=== PATIENT | male | born 1985 | race African-American/Black ===

== ENCOUNTER 2017-03-10 16:22 | Emergency (ER) | payer OTHER ==
[~2017-03-10 16:22] MED LIST: DIPH50TA PO; LISI-363 PO; METF500 PO; PALI234P IM; REST30CA PO; VALP250UDC PO; VIST50CA PO
--- NOTE | 2017-03-10 18:52 | PD ---
HPI Chief Complaint: Psychiatric Symptoms Time Seen by Provider: 18:49 Travel History International Travel<30 days: No Contact w/Intl Traveler<30days: No Traveled to known affect area: No History of Present Illness HPI 31-year-old male that presents to the ED for evaluation of psych. Patient was expected by family secondary to noncompliance. Per expected patient is manic and making nonsensical statements. Patient has a history of schizoaffective disorder. Denies any medical process other than diabetes. He states that he is compliant with his medications. He denies any suicidal or homicidal ideation to me. He denies any symptoms to me. He is a well known patient to the staff in the psychiatric area. He denies any other symptom. He is not really forthcoming with information unless questioned. Symptoms appear to be mild. Unclear length of time but per expected it's been ongoing. PFSH Past Medical History Asthma: Yes Autoimmune Disease: No Blood Disorders: No Bipolar Disorder: Yes Anxiety: Yes Depression: Yes Heart Rhythm Problems: No Cancer: No Cardiovascular Problems: No High Cholesterol: No Chest Pain: No Congestive Heart Failure: No COPD: No Diabetes: Yes Diminished Hearing: No Endocrine: No Gastrointestinal Disorders: No Genitourinary: No Headaches: No Hypertension: Yes Immune Disorder: No Kidney Stones: No Musculoskeletal: No Neurologic: No Psychiatric: Yes (history of bipoloar dx, schizophrnia and schizoeffective) Reproductive: No Respiratory: Yes Immunizations Current: Yes Renal Failure: No Schizophrenia: Yes Seizures: No Sleep Apnea: No Thyroid Disease: No PNEUMOCCOCAL Vaccine (Year): 2 Past Surgical History Abdominal Surgery: Yes (APPENDECTOMY 2002) Appendectomy: Yes Cardiac Surgery: No Ear Surgery: No Endocrine Surgery: No Eye Surgery: No Genitourinary Surgery: No Gynecologic Surgery: No Neurologic Surgery: No Oral Surgery: No Thoracic Surgery: No Other Surgery: No Social History Alcohol Use: No Tobacco Use: Yes (2 PPD) Substance Use: Yes (MARIJUANA) Allergies-Medications (Allergen,Severity, Reaction): Coded Allergies: No Known Allergies (Verified , 07/09/16) Reported Meds & Prescriptions Reported Meds & Active Scripts Active Invega Sustenna (Paliperidone Palmitate) 234 Mg/1.5 Ml Inj 234 Mg IM Q28D 28 Days Reported Glucophage 500 mg (Metformin HCl) 500 Mg Tab 500 Mg PO TID Diphenhydramine Hcl (Diphenhydramine HCl) 50 Mg Cap 50 Mg PO BID Vistaril 50 MG CAP (Hydroxyzine Pamoate) 50 Mg Cap 50 Mg PO TID PRN Lisinopril 20 mg (Lisinopril) 20 Mg Tab 1 Tab PO DAILY Depakene (Valproic Acid) 250 Mg/5 Ml Syrp 500 Mg PO BID Review of Systems Except as stated in HPI: all other systems reviewed are Neg Physical Exam Narrative GENERAL: SKIN: Warm and dry. HEAD: Atraumatic. Normocephalic. EYES: Pupils equal and round. No scleral icterus. No injection or drainage. ENT: No nasal bleeding or discharge. Mucous membranes pink and moist. Tongue is midline. No uvula deviation. NECK: Trachea midline. No JVD. CARDIOVASCULAR: Regular rate and rhythm. No murmurs, S3, S4. RESPIRATORY: No accessory muscle use. Clear to auscultation. Breath sounds equal bilaterally. GASTROINTESTINAL: Abdomen soft, non-tender, nondistended. Hepatic and splenic margins not palpable. MUSCULOSKELETAL: Extremities without clubbing, cyanosis, or edema. No obvious deformities. Full range of motion of the upper and lower extremities bilaterally. 2+ pulses bilaterally. NEUROLOGICAL: Awake and alert. No obvious cranial nerve deficits. Motor grossly within normal limits. Five out of 5 muscle strength in the arms and legs. Normal speech. PSYCHIATRIC: Appropriate mood and affect; insight and judgment normal. Data Data Orders Psych Screen (03/10/17 18:03) Diet Regular Basic (03/10/17 Dinner) Complete Blood Count With Diff (03/10/17 18:06) Comprehensive Metabolic Panel (03/10/17 18:06) Drug Screen, Random Urine (03/10/17 18:06) Alcohol (Ethanol) (03/10/17 18:06) Valproic Acid (Depakene) (03/10/17 19:25) Hydroxyzine Pamoate (Vistaril) (03/10/17 19:30) Lisinopril (Prinivil) (03/11/17 09:00) Metformin (Glucophage) (03/11/17 09:00) Valproic Acid Liq (Depakene Liq) (03/10/17 21:00) Labs Laboratory Tests Test 03/10/17 18:45 White Blood Count 6.5 TH/MM3 Red Blood Count 4.95 MIL/MM3 Hemoglobin 13.4 GM/DL Hematocrit 40.4 % Mean Corpuscular Volume 81.7 FL Mean Corpuscular Hemoglobin 27.1 PG Mean Corpuscular Hemoglobin 33.2 % Concent Red Cell Distribution Width 15.7 % Platelet Count 196 TH/MM3 Mean Platelet Volume 8.3 FL Neutrophils (%) (Auto) 50.2 % Lymphocytes (%) (Auto) 40.8 % Monocytes (%) (Auto) 5.0 % Eosinophils (%) (Auto) 3.2 % Basophils (%) (Auto) 0.8 % Neutrophils # (Auto) 3.3 TH/MM3 Lymphocytes # (Auto) 2.7 TH/MM3 Monocytes # (Auto) 0.3 TH/MM3 Eosinophils # (Auto) 0.2 TH/MM3 Basophils # (Auto) 0.1 TH/MM3 CBC Comment DIFF FINAL Differential Comment Sodium Level 140 MEQ/L Potassium Level 3.8 MEQ/L Chloride Level 104 MEQ/L Carbon Dioxide Level 32.4 MEQ/L Anion Gap 4 MEQ/L Blood Urea Nitrogen 8 MG/DL Creatinine 1.18 MG/DL Estimat Glomerular Filtration 88 ML/MIN Rate Random Glucose 117 MG/DL Calcium Level 8.6 MG/DL Total Bilirubin 0.3 MG/DL Aspartate Amino Transf 19 U/L (AST/SGOT) Alanine Aminotransferase 28 U/L (ALT/SGPT) Alkaline Phosphatase 75 U/L Total Protein 6.9 GM/DL Albumin 3.5 GM/DL Ethyl Alcohol Level 4 MG/DL MDM Medical Decision Making Medical Screen Exam Complete: Yes Emergency Medical Condition: Yes Medical Record Reviewed: Yes Interpretation(s) CBC & BMP Diagram 03/10/17 18:45 tox negative Differential Diagnosis Depression versus suicidal ideation versus anxiety versus adjustment disorder versus mood disorder versus bipolar disorder versus schizophrenia versus paranoid disorder versus psychosis versus substance abuse versus alcohol abuse versus alcohol induced psychosis versus homicidality addition versus cutting versus personality disorder Narrative Course 31-year-old male that presents to the ED for evaluation of psych. Patient was properly examined and was found to have signs and symptoms consistent with psychiatric illness. No sign of acute medical distress. Labs were drawn. Patient was medically cleared. Okay to be seen by psych. Mental health screening was discussed with the patient. Diagnosis Primary Impression: Schizophrenia Qualified Code: F20.9 - Schizophrenia, unspecified type Philip Damian Mar 10, 2017 18:52
[2017-03-10 18:57] LABS: AUTOMATED NEUTROPHIL # 3.3 TH/MM3 (1.8-7.7); BASOPHIL # 0.1 TH/MM3 (0-0.2); BASOPHIL % 0.8 % (0.0-2.0); EOSINOPHIL # 0.2 TH/MM3 (0-0.4); EOSINOPHIL % 3.2 % (0.0-4.0); HEMATOCRIT 40.4 % (39.0-51.0); HEMO FLAGS DIFF FINAL; LYMPH % 40.8 % (9.0-44.0); LYMPHOCYTE # 2.7 TH/MM3 (1.0-4.8); MEAN CELL VOLUME 81.7 FL (80.0-100.0); MEAN CORPUSCULAR HEMOGLOBIN 27.1 PG (27.0-34.0); MEAN CORPUSCULAR HGB CONC 33.2 % (32.0-36.0); NEUT % 50.2 % (16.0-70.0); PLATELET COUNT 196 TH/MM3 (150-450); RED BLOOD COUNT 4.95 MIL/MM3 (4.50-5.90); RED CELL DISTRIBUTION WIDTH 15.7 % (11.6-17.2); WHITE BLOOD COUNT 6.5 TH/MM3 (4.0-11.0)
[2017-03-10 19:17] LABS: ANION GAP 4 MEQ/L (5-15)
[2017-03-10 19:20] LABS: ALKALINE PHOSPHATASE 75 U/L (45-117); ALT (GPT) 28 U/L (12-78); AST (GOT) 19 U/L (15-37); BICARBONATE 32.4 MEQ/L (21.0-32.0); BLOOD UREA NITROGEN 8 MG/DL (7-18); CHLORIDE 104 MEQ/L (98-107); GLOMERULAR FILTRATION RATE 88 ML/MIN (>89); POTASSIUM 3.8 MEQ/L (3.5-5.1); SODIUM (NA) 140 MEQ/L (136-145); TOTAL BILIRUBIN ADULT 0.3 MG/DL (0.2-1.0)
[2017-03-10 20:02] VITALS: BP 126/75; PULSE 67; RESP 18; O2SAT 98
[2017-03-10] MEDS ORDERED: VALPROIC ACID SYRUP 250 MG/5 ML UDC PO SCH (21:00)
[2017-03-10 22:36] VITALS: BP 113/66; PULSE 71; RESP 19; O2SAT 96
[2017-03-11 01:57] LABS: AMPHETAMINE, URINE NEG (NEG); BARBITURATES, URINE NEG (NEG); COCAINE, URINE POS (NEG)
[2017-03-11 02:00] VITALS: BP 110/55; PULSE 70; RESP 18; O2SAT 97
[2017-03-11 06:17] VITALS: BP 114/71; PULSE 65; RESP 19; O2SAT 99
[2017-03-11] MEDS ORDERED: metFORMIN HCL 500 MG TAB PO SCH (09:00)
[2017-03-11] MEDS ORDERED: LISINOPRIL 20 MG TAB PO SCH (09:00)
== END 2017-03-11 07:32 ==
LOC: NEDAMB 16:22 → NEPJ 03-11 07:32
DX: F20.9 Schizophrenia, unspecified (principal); J45.909 Unspecified asthma, uncomplicated; F41.9 Anxiety disorder, unspecified; I10 Essential (primary) hypertension; E11.9 Type 2 diabetes mellitus without complications
CPT/HCPCS: 80053; 80164; 80307; 85025; 99285

== ENCOUNTER 2017-04-10 00:47 | Emergency (ER) | payer SELFPAY ==
[~2017-04-10] VITALS: Ht 180.3 cm; Wt 78.0 kg
[2017-04-10 00:49] VITALS: BP 155/89; PULSE 120; RESP 20; TEMP 98.2; O2SAT 98
[2017-04-10 01:02] VITALS: BP 135/89; PULSE 105; RESP 20; O2SAT 99
[2017-04-10] MEDS ORDERED: VIST50CA PO (01:02)
[2017-04-10] MEDS ORDERED: PALI156P IM (01:02)
[2017-04-10] MEDS ORDERED: METF500T PO (01:02)
--- NOTE | 2017-04-10 01:23 | PD ---
HPI Chief Complaint: Bite or Sting Time Seen by Provider: 01:21 Travel History International Travel<30 days: No Contact w/Intl Traveler<30days: No Traveled to known affect area: No History of Present Illness HPI 31-year-old male presents to the emergency department from home for complaint of possible insect bite to his buttock just prior to arrival to the emergency department. Patient is convinced that he was either bitten by a spider or beetle or some type of blood. Patient states that he brushed the area briskly and water pill was on him flew away and he does not see completely or identify the insect wall. Patient is very concerned that he is having an adverse reaction because the site was pain. Patient denies any pruritus or pain at the site this time. Patient did not develop any urticaria. No lip tongue or throat swelling. No stridor or hoarseness. No shortness of breath or chest pain. No palpitations or syncope or syncope. No nausea or vomiting or diarrhea. Patient is diabetic. Patient denies other concerns or complaints. Patient states he is much calmer now that he is in the emergency room and thinks that may be he overreacted. PFSH Past Medical History Narrative Medical Diabetes asthma bipolar disorder appendectomy tobacco use; nursing notes reviewed Asthma: Yes Autoimmune Disease: No Blood Disorders: No Bipolar Disorder: Yes Anxiety: Yes Depression: Yes Heart Rhythm Problems: No Cancer: No Cardiovascular Problems: No High Cholesterol: No Chest Pain: No Congestive Heart Failure: No COPD: No Diabetes: Yes (METFORMIN yesterday) Patient Takes Glucophage: Yes Diminished Hearing: No Endocrine: No Gastrointestinal Disorders: No Genitourinary: No Headaches: No Hypertension: Yes Immune Disorder: No Implanted Vascular Access Dvce: No Kidney Stones: No Musculoskeletal: No Neurologic: No Psychiatric: Yes (history of bipoloar, schizophernia and schizoaffective, d/o) Reproductive: No Respiratory: Yes Immunizations Current: Yes Renal Failure: No Schizophrenia: Yes Seizures: No Sleep Apnea: No Thyroid Disease: No Tetanus Vaccination: > 5 Years PNEUMOCCOCAL Vaccine (Year): 2 Past Surgical History Abdominal Surgery: Yes (APPENDECTOMY 2002) Appendectomy: Yes Cardiac Surgery: No Ear Surgery: No Endocrine Surgery: No Eye Surgery: No Genitourinary Surgery: No Gynecologic Surgery: No Neurologic Surgery: No Oral Surgery: No Thoracic Surgery: No Other Surgery: Yes Social History Alcohol Use: No Tobacco Use: Yes (2 PPD) Substance Use: No Allergies-Medications (Allergen,Severity, Reaction): Coded Allergies: No Known Allergies (Verified , 04/10/17) Reported Meds & Prescriptions Reported Meds & Active Scripts Active Reported Vistaril (Hydroxyzine Pamoate) 50 Mg Cap 50 Mg PO TID Invega Sustenna Inj (Paliperidone Palmitate) 156 Mg/Ml Inj 156 Mg IM Q28D Metformin (Metformin HCl) 500 Mg Tab 500 Mg PO TIDPC With meals Review of Systems Except as stated in HPI: all other systems reviewed are Neg General / Constitutional: No: Fever, Chills HENT: No: Congestion Cardiovascular: No: Chest Pain or Discomfort, Palpitations, Diaphoresis Respiratory: No: Shortness of Breath Gastrointestinal: No: Nausea, Vomiting, Diarrhea, Abdominal Pain Genitourinary: No: Flank Pain Musculoskeletal: No: Myalgias, Arthralgias Skin: No Rash, No Hives Neurologic: No: Weakness, Dizziness, Syncope, Focal Abnormalities, Coordination Problem, Paresthesia, Seizures Psychiatric: Positive: Anxiety Endocrine: No: Heat Intolerance Hematologic/Lymphatic: No: Easy Bruising Physical Exam Narrative GENERAL: Well-developed well-nourished male in no acute distress no respiratory distress SKIN: Warm and dry. No vesicles no pustules no petechia no purpura no urticaria no induration no erythema no tenderness no abrasion no puncture wound HEAD: Normocephalic. EYES: No scleral icterus. No injection or drainage. NECK: Supple, trachea midline. No JVD or lymphadenopathy. CARDIOVASCULAR: Regular rate and rhythm without murmurs, gallops, or rubs. RESPIRATORY: Breath sounds equal bilaterally. No accessory muscle use. GASTROINTESTINAL: Abdomen soft, non-tender, nondistended. MUSCULOSKELETAL: No cyanosis, or edema. BACK: Nontender without obvious deformity. No CVA tenderness. Data Data Last Documented VS [facility] Medical Decision Making Medical Screen Exam Complete: Yes Emergency Medical Condition: Yes Medical Record Reviewed: Yes Differential Diagnosis Insect bite, contact dermatitis, folliculitis, allergic reaction Narrative Course B; patient reports he feels well now and wants to go home; exam stable patient offered benadryl --reports has this at home Diagnosis Primary Impression: Bug bite Qualified Code: W57.XXXA - Bug bite, initial encounter Additional Impressions: Mild anxiety DM (diabetes mellitus) Referrals: Primary Care Physician as needed Additional Instructions: Continue current medications as presently prescribed May use [id number] Benadryl or Zantac 150 per package instructions as needed for possible itching or allergic reaction Return to the emergency department for a concerns or change in condition Disposition: 01 DISCHARGE HOME Condition: Stable Gina Grier MD April 10, 2017 01:23
== END 2017-04-10 01:42 | disposition home or self-care (01) ==
LOC: NEPC 00:47
DX: S30.860A Insect bite (nonvenomous) of lower back and pelvis, initial encounter (principal); F41.9 Anxiety disorder, unspecified; E11.9 Type 2 diabetes mellitus without complications; I10 Essential (primary) hypertension; F17.200 Nicotine dependence, unspecified, uncomplicated; Z79.84 Long term (current) use of oral hypoglycemic drugs; Z86.59 Personal history of other mental and behavioral disorders; Z87.09 Personal history of other diseases of the respiratory system; W57.XXXA Bitten or stung by nonvenomous insect and other nonvenomous arthropods, initial encounter
CPT/HCPCS: 99281

== ENCOUNTER 2017-04-18 19:49 | Emergency (ER) | payer OTHER ==
[~2017-04-18 19:49] MED LIST changes: -DIPH50TA PO; -LISI-363 PO; -METF500 PO; +METF500T PO; +PALI156P IM; -PALI234P IM; -VALP250UDC PO
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
[2017-04-18] MEDS ORDERED: TETANUS/DIPHTHERIA TOXOID ADULT 0.5 ML VIAL IM ONE (20:45)
[2017-04-18 21:07] VITALS: BP 142/84; PULSE 88; RESP 18; TEMP 97.8; O2SAT 96
[2017-04-18 21:44] LABS: BASOPHIL # 0.1 TH/MM3 (0-0.2); BASOPHIL % 1.1 % (0.0-2.0); EOSINOPHIL # 0.1 TH/MM3 (0-0.4); EOSINOPHIL % 1.1 % (0.0-4.0); HEMATOCRIT 43.6 % (39.0-51.0); HEMO FLAGS DIFF FINAL; LYMPH % 33.8 % (9.0-44.0); LYMPHOCYTE # 2.4 TH/MM3 (1.0-4.8); MEAN CELL VOLUME 80.6 FL (80.0-100.0); MEAN CORPUSCULAR HEMOGLOBIN 27.2 PG (27.0-34.0); MEAN CORPUSCULAR HGB CONC 33.7 % (32.0-36.0); MONO % 8.4 % (0.0-8.0); NEUT % 55.6 % (16.0-70.0); PLATELET COUNT 176 TH/MM3 (150-450); RED BLOOD COUNT 5.41 MIL/MM3 (4.50-5.90); RED CELL DISTRIBUTION WIDTH 14.6 % (11.6-17.2); WHITE BLOOD COUNT 7.2 TH/MM3 (4.0-11.0)
[2017-04-18 21:53] LABS: ANION GAP 9 MEQ/L (5-15)
[2017-04-18 21:56] LABS: BLOOD UREA NITROGEN 8 MG/DL (7-18)
[2017-04-18 21:57] LABS: ALKALINE PHOSPHATASE 79 U/L (45-117); ALT (GPT) 31 U/L (12-78); AST (GOT) 34 U/L (15-37); BICARBONATE 26.2 MEQ/L (21.0-32.0); CHLORIDE 106 MEQ/L (98-107); GLOMERULAR FILTRATION RATE 104 ML/MIN (>89); POTASSIUM 3.4 MEQ/L (3.5-5.1); SODIUM (NA) 141 MEQ/L (136-145); TOTAL BILIRUBIN ADULT 0.6 MG/DL (0.2-1.0)
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
[2017-04-18 22:41] LABS: AMPHETAMINE, URINE NEG (NEG); BARBITURATES, URINE NEG (NEG); COCAINE, URINE NEG (NEG)
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
[2017-04-18 23:43] VITALS: BP 124/68; PULSE 80; RESP 14; O2SAT 97
[2017-04-19 02:09] VITALS: BP 114/75; PULSE 85; RESP 18; O2SAT 98
[2017-04-19 06:27] VITALS: BP 126/65; PULSE 94; RESP 18; O2SAT 100
[2017-04-19] MEDS ORDERED: ACETAMINOPHEN 325 MG TAB PO ONE (06:30)
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
[2017-04-19 12:52] VITALS: BP 126/65; PULSE 94; RESP 18; O2SAT 100
== END 2017-04-19 12:54 | disposition home or self-care (01) ==
LOC: NEPD 19:49 → NEPJ 04-19 12:54
DX: F31.9 Bipolar disorder, unspecified (principal); F43.25 Adjustment disorder with mixed disturbance of emotions and conduct; M79.641 Pain in right hand; M79.671 Pain in right foot; M79.652 Pain in left thigh; E11.9 Type 2 diabetes mellitus without complications; I10 Essential (primary) hypertension; F17.200 Nicotine dependence, unspecified, uncomplicated; Z23 Encounter for immunization; Z79.84 Long term (current) use of oral hypoglycemic drugs; Z87.09 Personal history of other diseases of the respiratory system; Z86.59 Personal history of other mental and behavioral disorders
CPT/HCPCS: 70450; 73130; 73552; 73630; 80053; 80307; 85025; 90471; 90714; 96372

== ENCOUNTER 2017-05-11 14:25 | Emergency (ER) | payer OTHER ==
[~2017-05-11] VITALS: Ht 175.3 cm; Wt 104.5 kg
[2017-05-11 15:00] VITALS: BP 113/78; PULSE 84; RESP 16; TEMP 98.4; O2SAT 100
--- NOTE | 2017-05-11 15:04 | PD ---
HPI Chief Complaint: ex parte Time Seen by Provider: 14:51 Travel History International Travel<30 days: No Contact w/Intl Traveler<30days: No Traveled to known affect area: No History of Present Illness HPI The patient is a 31-year-old Stefany male who presents emergency department via police custody as an ex parte. The patient has a history of schizoaffective disorder and bipolar affective disorder, receives a monthly injection at [facility] [place] and is on Depakote at home. The patient states his mother administers his medications, however, has not been giving him his Depakote recently. The patient states he was awakened by police who brought him in for psychiatric evaluation because the family got a court order that states the patient is medically ill has been taking illegal substances and making threats. The patient states he smokes marijuana but does not ingest any other medications illegally. He does note he occasionally takes Xanax for anxiety and has been placed on Depakote in the past, however, has been partially compliant with his medications, he states that his mother does not give the medications routinely. The patient denies any suicidal or homicidal ideation. He denies any current hallucinations or delusions. He denies any physical complaints. PFSH Past Medical History Asthma: Yes Autoimmune Disease: No Blood Disorders: No Bipolar Disorder: Yes Anxiety: Yes Depression: Yes Heart Rhythm Problems: No Cancer: No Cardiovascular Problems: No High Cholesterol: No Chest Pain: No Congestive Heart Failure: No COPD: No Diabetes: Yes Diminished Hearing: No Endocrine: No Gastrointestinal Disorders: No Genitourinary: No Headaches: No Hypertension: Yes Immune Disorder: No Implanted Vascular Access Dvce: No Kidney Stones: No Musculoskeletal: No Neurologic: No Psychiatric: Yes (history of bipoloar, schizophernia and schizoaffective, d/o) Reproductive: No Respiratory: Yes Immunizations Current: Yes Renal Failure: No Schizophrenia: Yes Seizures: No Sleep Apnea: No Thyroid Disease: No PNEUMOCCOCAL Vaccine (Year): 2 Past Surgical History Abdominal Surgery: Yes (APPENDECTOMY 2002) Appendectomy: Yes Cardiac Surgery: No Ear Surgery: No Endocrine Surgery: No Eye Surgery: No Genitourinary Surgery: No Gynecologic Surgery: No Neurologic Surgery: No Oral Surgery: No Thoracic Surgery: No Other Surgery: Yes Social History Alcohol Use: No Tobacco Use: Yes (2 PPD) Substance Use: Yes (MARIJUANA) Allergies-Medications (Allergen,Severity, Reaction): Coded Allergies: No Known Allergies (Verified , 05/11/17) Reported Meds & Prescriptions Reported Meds & Active Scripts Active Reported Vistaril (Hydroxyzine Pamoate) 50 Mg Cap 50 Mg PO TID Invega Sustenna Inj (Paliperidone Palmitate) 156 Mg/Ml Inj 156 Mg IM Q28D Metformin (Metformin HCl) 500 Mg Tab 500 Mg PO TIDPC With meals Review of Systems Except as stated in HPI: all other systems reviewed are Neg Psychiatric: Positive: Anxiety, Disorder of Thought, Mood Disorder, Substance Abuse, No: Suicidal Ideations (marijuana use), Homicidal Ideation Physical Exam Narrative GENERAL: Awake, alert, pleasant 31-year-old male who appears his stated age and is in no acute respiratory distress. SKIN: Focused skin assessment warm/dry. HEAD: Atraumatic. Normocephalic. EYES: Pupils equal and round. No scleral icterus. No injection or drainage. ENT: No nasal bleeding or discharge. Mucous membranes pink and moist. NECK: Trachea midline. No JVD. CARDIOVASCULAR: Regular rate and rhythm. No murmur appreciated. RESPIRATORY: No accessory muscle use. Clear to auscultation. Breath sounds equal bilaterally. GASTROINTESTINAL: Abdomen soft, non-tender, nondistended. No rebound tenderness. MUSCULOSKELETAL: No obvious deformities. No clubbing. No cyanosis. No edema. NEUROLOGICAL: Awake and alert. No obvious cranial nerve deficits. Motor grossly within normal limits. Normal speech. Nonfocal. Oriented 4. Follows commands without difficulty. PSYCHIATRIC: Appropriate mood and affect; insight and judgment normal. Data Data Last Documented VS Vital Signs Date Time Temp Pulse Resp B/P Pulse Ox O2 Delivery O2 Flow Rate FiO2 05/11/17 15:00 98.4 84 16 113/78 100 Orders Complete Blood Count With Diff (05/11/17 14:51) Comprehensive Metabolic Panel (05/11/17 14:51) Valproic Acid (Depakene) (05/11/17 14:51) Psych Screen (05/11/17 14:51) Drug Screen, Random Urine (05/11/17 14:51) Alcohol (Ethanol) (05/11/17 14:51) Labs Laboratory Tests Test 05/11/17 15:02 White Blood Count 6.0 TH/MM3 Red Blood Count 5.13 MIL/MM3 Hemoglobin 13.9 GM/DL Hematocrit 42.1 % Mean Corpuscular Volume 82.0 FL Mean Corpuscular Hemoglobin 27.0 PG Mean Corpuscular Hemoglobin 33.0 % Concent Red Cell Distribution Width 15.3 % Platelet Count 207 TH/MM3 Mean Platelet Volume 8.4 FL Neutrophils (%) (Auto) 45.1 % Lymphocytes (%) (Auto) 43.5 % Monocytes (%) (Auto) 6.8 % Eosinophils (%) (Auto) 4.0 % Basophils (%) (Auto) 0.6 % Neutrophils # (Auto) 2.7 TH/MM3 Lymphocytes # (Auto) 2.6 TH/MM3 Monocytes # (Auto) 0.4 TH/MM3 Eosinophils # (Auto) 0.2 TH/MM3 Basophils # (Auto) 0.0 TH/MM3 CBC Comment DIFF FINAL Differential Comment Sodium Level 141 MEQ/L Potassium Level 3.6 MEQ/L Chloride Level 107 MEQ/L Carbon Dioxide Level 25.4 MEQ/L Anion Gap 9 MEQ/L Blood Urea Nitrogen 5 MG/DL Creatinine 0.80 MG/DL Estimat Glomerular Filtration 138 ML/MIN Rate Random Glucose 75 MG/DL Calcium Level 8.5 MG/DL Total Bilirubin 0.6 MG/DL Aspartate Amino Transf 13 U/L (AST/SGOT) Alanine Aminotransferase 23 U/L (ALT/SGPT) Alkaline Phosphatase 78 U/L Total Protein 6.8 GM/DL Albumin 3.5 GM/DL Valproic Acid (Depakene) Level LESS THAN 3 MCG/ML Ethyl Alcohol Level LESS THAN 3 MG/DL MDM Medical Decision Making Medical Screen Exam Complete: Yes Emergency Medical Condition: Yes Medical Record Reviewed: Yes Interpretation(s) Laboratory Tests Test 05/11/17 15:02 White Blood Count 6.0 TH/MM3 Red Blood Count 5.13 MIL/MM3 Hemoglobin 13.9 GM/DL Hematocrit 42.1 % Mean Corpuscular Volume 82.0 FL Mean Corpuscular Hemoglobin 27.0 PG Mean Corpuscular Hemoglobin 33.0 % Concent Red Cell Distribution Width 15.3 % Platelet Count 207 TH/MM3 Mean Platelet Volume 8.4 FL Neutrophils (%) (Auto) 45.1 % Lymphocytes (%) (Auto) 43.5 % Monocytes (%) (Auto) 6.8 % Eosinophils (%) (Auto) 4.0 % Basophils (%) (Auto) 0.6 % Neutrophils # (Auto) 2.7 TH/MM3 Lymphocytes # (Auto) 2.6 TH/MM3 Monocytes # (Auto) 0.4 TH/MM3 Eosinophils # (Auto) 0.2 TH/MM3 Basophils # (Auto) 0.0 TH/MM3 CBC Comment DIFF FINAL Differential Comment Sodium Level 141 MEQ/L Potassium Level 3.6 MEQ/L Chloride Level 107 MEQ/L Carbon Dioxide Level 25.4 MEQ/L Anion Gap 9 MEQ/L Blood Urea Nitrogen 5 MG/DL Creatinine 0.80 MG/DL Estimat Glomerular Filtration 138 ML/MIN Rate Random Glucose 75 MG/DL Calcium Level 8.5 MG/DL Total Bilirubin 0.6 MG/DL Aspartate Amino Transf 13 U/L (AST/SGOT) Alanine Aminotransferase 23 U/L (ALT/SGPT) Alkaline Phosphatase 78 U/L Total Protein 6.8 GM/DL Albumin 3.5 GM/DL Valproic Acid (Depakene) Level LESS THAN 3 MCG/ML Ethyl Alcohol Level LESS THAN 3 MG/DL Differential Diagnosis Differential diagnosis includes schizoaffective disorder, bipolar affective disorder, schizophrenia, noncompliance. Narrative Course Labs were drawn and sent. Psychiatric evaluation was ordered. Labs were noted , unremarkable. Depakote level is low, doubt patient is compliant with Depakote. Patient is medically cleared to be evaluated by psychiatry. Disposition as per psych. Diagnosis Primary Impression: Bipolar disorder Qualified Code: F31.9 - Bipolar affective disorder, remission status unspecified Condition: Stable Bhavesh Jackson MD May 11, 2017 15:04
[2017-05-11 15:36] LABS: AUTOMATED NEUTROPHIL # 2.7 TH/MM3 (1.8-7.7); BASOPHIL % 0.6 % (0.0-2.0); EOSINOPHIL # 0.2 TH/MM3 (0-0.4); HEMATOCRIT 42.1 % (39.0-51.0); HEMO FLAGS DIFF FINAL; LYMPH % 43.5 % (9.0-44.0); LYMPHOCYTE # 2.6 TH/MM3 (1.0-4.8); MONO % 6.8 % (0.0-8.0); NEUT % 45.1 % (16.0-70.0); PLATELET COUNT 207 TH/MM3 (150-450); RED BLOOD COUNT 5.13 MIL/MM3 (4.50-5.90); RED CELL DISTRIBUTION WIDTH 15.3 % (11.6-17.2)
[2017-05-11 16:05] LABS: ANION GAP 9 MEQ/L (5-15); AST (GOT) 13 U/L (15-37); BICARBONATE 25.4 MEQ/L (21.0-32.0); BLOOD UREA NITROGEN 5 MG/DL (7-18); CHLORIDE 107 MEQ/L (98-107); GLOMERULAR FILTRATION RATE 138 ML/MIN (>89); POTASSIUM 3.6 MEQ/L (3.5-5.1); SODIUM (NA) 141 MEQ/L (136-145)
[2017-05-11 16:06] LABS: ALT (GPT) 23 U/L (12-78)
[2017-05-11 16:08] LABS: ALKALINE PHOSPHATASE 78 U/L (45-117); TOTAL BILIRUBIN ADULT 0.6 MG/DL (0.2-1.0)
[2017-05-11 17:18] VITALS: BP 135/72; PULSE 74; RESP 16; O2SAT 98
[2017-05-11 22:00] VITALS: BP 128/68; PULSE 70; RESP 16; O2SAT 97
[2017-05-12 09:10] VITALS: BP 132/86; PULSE 84; RESP 18; O2SAT 96
--- NOTE | 2017-05-12 09:19 | PD.CONS ---
Provisional Diagnosis Admission Date 05/11/2017 [place] I. 1. Schizoaffective disorder 2. Use of cannabis [place] II. Deferred [place] V. GAF is unclear at present History of Present Illness Service Psychiatry Consult Requested By Emergency department Reason for Consult Ex Parte Primary Care Physician No Primary Care Physician HPI Mr. Connell is a 31-year-old male with a reported history of schizophrenia/bipolar disorder who presents under an ex parte order initiated by his aunt, Lavinia Connell, alleging that the patient has been non -adherent with prescribed psychotropics and has been making violent threats. Reviewing the electronic medical record, I see that the patient was evaluated in consultation by Dr. Falcon at the end of March of this year under somewhat similar circumstances. His most recent psychiatric admission within our system was chiefly under Dr. Calvillo, and that was a year ago. Patient seen and examined. Chart reviewed. On my examination today, the patient presents as calm and cooperative with examination. He alleges that his aunt lives with him in his mother's house, and that she is trying to get him out of the house so that she can have his room, and this is why she initiated the ex parte in his estimation. He alleges that several other family members have had him Bourgeois Acted or placed under an ex parte with similar motivations. He feels like his family is out to get him. He does admit to thinking about retribution against family because of their alleged depredations, but he denies any suicidal or homicidal ideation at this time. He insists that he has been adherent with his psychotropic medications, although he insinuates that he was only given this diagnosis so that his family could collect the disability money that he would receive once he gets disability. He denies any audiovisual hallucinations. He denies any issues with mood. Remainder of the psychiatric ROS is negative. Past psychiatric history: Patient reports a history of bipolar disorder and schizophrenia. He follows at [facility]. His most recent psychiatric admission was the one described above under Dr. Calvillo. He denies any history of suicide attempts. He denies any history of violence. Family history: The patient reports some sort of mental illness and his uncle but he is unsure of the diagnosis. Chemical dependency history: The patient smokes cigarettes and also endorses occasional use of cannabis. Social history: Patient reports that he is living in the home with his mother, aunt and other family members. He has some college education and has applied for disability but has been declined. He is single with no children. He denies any history. He denies any access to guns or firearms. He denies any history of legal issues or violent crime. He believes in God and goes to restorationism he tells me. 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 Patient does not describe any other trauma history. With the patient's permission, I did endeavor to obtain collateral information from his father, Celio Domingo at [phone]. I left a voicemail requesting a call back. Review of Systems Except as stated in HPI: all other systems reviewed are Neg Past Family Social History Coded Allergies: No Known Allergies (Verified , 05/11/17) Past Medical History See electronic medical record Reported Medications Hydroxyzine Pamoate (Vistaril)50 Mg Cap50 Mg PO TID Ref 0 04/10/17 Paliperidone Palmitate Inj (Invega Sustenna Inj)156 Mg/Ml [id number] Mg IM Q28D #1 VIAL Ref 0 04/10/17 Metformin 500 Mg [id number] Mg PO TIDPC #90 TAB Ref 0 With meals 04/10/17 Family History See above Social History See above Patient's Strengths (min. 2) In a monitored setting. Verbally fluent. Physical Exam Physical exam completed by ED provider. On my examination today, the patient appears to be in no acute physical distress. No motor abnormalities noted. Laboratories and vital signs reviewed: Vital Signs Vital Signs Date Time Temp Pulse Resp B/P Pulse Ox O2 Delivery O2 Flow Rate FiO2 05/11/17 22:00 70 16 128/68 97 05/11/17 17:18 Room Air 05/11/17 15:00 98.4 I/O 05/11/17 05/11/17 05/12/17 08:00 16:00 00:00 Intake Total 640 ml Balance 640 ml Lab Results Item Value Date Time White Blood Count 6.0 TH/MM3 05/11/17 1502 Hemoglobin 13.9 GM/DL 05/11/17 1502 Platelet Count 207 TH/MM3 05/11/17 1502 Sodium Level 141 MEQ/L 05/11/17 1502 Potassium Level 3.6 MEQ/L 05/11/17 1502 Chloride Level 107 MEQ/L 05/11/17 1502 Carbon Dioxide Level 25.4 MEQ/L 05/11/17 1502 Blood Urea Nitrogen 5 MG/DL L 05/11/17 1502 Creatinine 0.80 MG/DL 05/11/17 1502 Aspartate Amino Transf (AST/SGOT) 13 U/L L 05/11/17 1502 Alanine Aminotransferase (ALT/SGPT) 23 U/L 05/11/17 1502 Alkaline Phosphatase 78 U/L 05/11/17 1502 Urine Cannabinoids Screen POS H 05/12/17 0915 Ethyl Alcohol Level LESS THAN 3 MG/DL 05/11/17 1502 Mental Status Examination Patient is casually dressed. He appears to be well groomed. He is awake and alert and oriented to person and hospital at least. No evidence of delirium. No motor abnormalities noted. Language and fund of knowledge seem average. Focus and concentration seem grossly intact as does memory on clinical exam. Mood is fair and affect is somewhat blunted. Thought process linear. Unclear if patient's beliefs that his family is mistreating him as detailed above is delusional or not. No other sage delusions noted. Denies audiovisual hallucinations. Denies suicidal or homicidal ideation. Insight and judgment are unclear. Assessment & Plan Problem List: (1) Schizoaffective disorder ICD Code: F25.9 (2) Use of cannabis ICD Code: F12.90 Assessment & Plan This is a 31-year-old male with psychiatric history as detailed above who presents under an ex parte order. On my examination today, the patient presents very well and does not have a grossly unstable mood, anxiety or psychotic disorder. He insists that he has been compliant with medications. However, it is presently unclear whether patient's report that his family is out to get him by having him repeatedly Bourgeois Acted and ex parte' d is fact based or delusional. In the absence of reassuring collateral, I think it is most prudent to admit the patient to the inpatient unit for observation. Ex parte remains in place. [facility] to [facility] on [facility]. Transfer to [facility] once a bed is available. Problem Qualifiers (1) Schizoaffective disorder: Qualified Code: F25.9 - Schizoaffective disorder, unspecified type Alex Chan MD May 12, 2017 09:19
[2017-05-12 09:35] LABS: AMPHETAMINE, URINE NEG (NEG); BARBITURATES, URINE NEG (NEG); COCAINE, URINE NEG (NEG)
[2017-05-12 13:02] VITALS: BP 141/97; PULSE 64; RESP 20; TEMP 98.3; O2SAT 94
[2017-05-12 13:06] VITALS: BP 141/97; TEMP 98.3
[2017-05-12 14:42] VITALS: BP 120/65; PULSE 65; RESP 18; TEMP 97.1; O2SAT 99
[2017-05-12 18:17] VITALS: BP 135/70; PULSE 67; RESP 18; TEMP 98.6; O2SAT 100
[2017-05-12 22:17] VITALS: BP 122/74; PULSE 17; PULSE 74; RESP 17; O2SAT 95
[2017-05-13 02:53] VITALS: BP 133/60; RESP 18; O2SAT 95
[2017-05-13 06:31] VITALS: BP 117/59; PULSE 78; RESP 17; O2SAT 97
[2017-05-13 10:10] VITALS: BP 144/71; PULSE 71; RESP 18
[2017-05-13 13:32] VITALS: BP 144/71; TEMP 98.3
== END 2017-05-13 13:10 | disposition home or self-care (01) ==
LOC: NEPC 14:25 → NEPJ 05-13 13:10
DX: F25.9 Schizoaffective disorder, unspecified (principal); F12.90 Cannabis use, unspecified, uncomplicated; F17.200 Nicotine dependence, unspecified, uncomplicated; I10 Essential (primary) hypertension; E11.9 Type 2 diabetes mellitus without complications; Z79.84 Long term (current) use of oral hypoglycemic drugs
CPT/HCPCS: 80053; 80164; 80307; 85025; 99284

== ENCOUNTER 2017-05-16 21:37 | Emergency (ER) | payer OTHER ==
[~2017-05-16] VITALS: Ht 175.3 cm; Wt 110.0 kg
[2017-05-16 22:03] VITALS: BP 128/79; PULSE 90; RESP 20; TEMP 98.6; O2SAT 98
--- NOTE | 2017-05-16 22:03 | PD ---
HPI Chief Complaint: Medical Clearance Time Seen by Provider: 22:03 Travel History International Travel<30 days: No Contact w/Intl Traveler<30days: No History of Present Illness HPI 31-year-old male presents to the emergency department to police custody. Patient states he was concerned of hypoglycemia. He states he took his metformin did not eat. He states his blood sugar was 132 and then became 88. He states he was concerned that he needed to eat. He was not going to get food fast enough at group home so he needed to come to the emergency department. Patient denies any chest pain or shortness breath. No abdominal pain. No nausea, vomiting, diarrhea. He denies any fevers. He denies any IV drug use. Patient states he feels well. He is drinking Gatorade eating crackers upon my examination states that these are helping his hypoglycemia. Patient has history of psychiatric illness. Patient denies any other complaints at this time. PFSH Past Medical History Asthma: Yes Autoimmune Disease: No Blood Disorders: No Bipolar Disorder: Yes Anxiety: Yes Depression: Yes Heart Rhythm Problems: No Cancer: No Cardiovascular Problems: No High Cholesterol: No Chest Pain: No Congestive Heart Failure: No COPD: No Diabetes: Yes Patient Takes Glucophage: Yes Diminished Hearing: No Endocrine: No Gastrointestinal Disorders: No Genitourinary: No Headaches: No Hypertension: Yes Immune Disorder: No Implanted Vascular Access Dvce: No Kidney Stones: No Musculoskeletal: No Neurologic: No Psychiatric: Yes (history of bipoloar, schizophernia and schizoaffective, d/o) Reproductive: No Respiratory: Yes Immunizations Current: Yes Renal Failure: No Schizophrenia: Yes Seizures: No Sleep Apnea: No Thyroid Disease: No Influenza Vaccination: Yes PNEUMOCCOCAL Vaccine (Year): 2 Past Surgical History Abdominal Surgery: Yes (APPENDECTOMY 2002) Appendectomy: Yes Cardiac Surgery: No Ear Surgery: No Endocrine Surgery: No Eye Surgery: No Genitourinary Surgery: No Gynecologic Surgery: No Neurologic Surgery: No Oral Surgery: No Thoracic Surgery: No Other Surgery: Yes Social History Alcohol Use: No Tobacco Use: Yes Substance Use: Yes (pot) Allergies-Medications (Allergen,Severity, Reaction): Coded Allergies: No Known Allergies (Verified , 05/16/17) Reported Meds & Prescriptions Reported Meds & Active Scripts Active Reported Vistaril (Hydroxyzine Pamoate) 50 Mg Cap 50 Mg PO TID Invega Sustenna Inj (Paliperidone Palmitate) 156 Mg/Ml Inj 156 Mg IM Q28D Metformin (Metformin HCl) 500 Mg Tab 500 Mg PO TIDPC With meals Review of Systems Except as stated in HPI: all other systems reviewed are Neg Physical Exam Narrative GENERAL: Well-nourished, well-developed male patient, ambulatory. Afebrile. SKIN: Focused skin assessment warm/dry. HEAD: Normocephalic. Atraumatic. EYES: No scleral icterus. No injection or drainage. NECK: Supple, trachea midline. No JVD or lymphadenopathy. CARDIOVASCULAR: Regular rate and rhythm without murmurs, gallops, or rubs. Bilateral radial and pedal pulses are 2+. RESPIRATORY: Breath sounds equal bilaterally. No accessory muscle use. Lungs sounds are clear to auscultation. GASTROINTESTINAL: Abdomen soft, non-tender, nondistended. MUSCULOSKELETAL: No cyanosis, or edema. BACK: Nontender without obvious deformity. No CVA tenderness. Data Data Last Documented VS Vital Signs Date Time Temp Pulse Resp B/P Pulse Ox O2 Delivery O2 Flow Rate FiO2 05/16/17 22:03 98.6 90 20 128/79 98 Orders Diet Regular Basic (05/16/17 Dinner) MDM Medical Decision Making Medical Screen Exam Complete: Yes Emergency Medical Condition: Yes Medical Record Reviewed: Yes Differential Diagnosis Hypoglycemia versus diabetes versus medical clearance Narrative Course 31-year-old male presents to the emergency Department under police custody. He is concerned of hypoglycemia. He appears well on exam. He denies any symptoms stating that his Gatorade and crackers are helping him. Blood glucose is 88 in the emergency department. Patient will be given a meal and discharged under police custody. Patient verbalizes agreement to this. Patient is return for any acute worsening of symptoms. The patient was discharged in stable condition with instructions, including return instructions and follow up instructions. Diagnosis Primary Impression: Medical clearance for incarceration Referrals: Primary Care Physician call for appointment Patient Instructions: General Instructions, Hypoglycemia in a Person with Diabetes (ED) Additional Instructions: Follow-up with your primary care physician. Return to the emergency department for any acute worsening of symptoms. Med/Other Pt SpecificInfo: No Change to Meds Disposition: [address] LAW ENFORCEMNT Condition: Stable Alejandrina Whatley MARIA T May 16, 2017 22:03
[2017-05-16 23:15] VITALS: BP 135/91
== END 2017-05-17 00:16 ==
LOC: NEPE 21:37
DX: Z03.89 Encounter for observation for other suspected diseases and conditions ruled out (principal); E11.649 Type 2 diabetes mellitus with hypoglycemia without coma; F25.9 Schizoaffective disorder, unspecified; I10 Essential (primary) hypertension; Z79.84 Long term (current) use of oral hypoglycemic drugs; Z72.0 Tobacco use
CPT/HCPCS: 99281

== ENCOUNTER 2017-07-18 15:31 | Emergency (ER) | payer SELFPAY ==
[~2017-07-18] VITALS: Ht 175.3 cm; Wt 110.0 kg
[2017-07-18 15:38] VITALS: BP 123/79; PULSE 90; RESP 18; TEMP 98.8; O2SAT 98
--- NOTE | 2017-07-18 17:12 | PD ---
Physical Exam Date Seen by Provider: Jul 18, 2017 Time Seen by Provider: 17:06 Narrative 32 y/o male with 3 days Hx. right flank pain radiating to groin and right testicle. No Hx Kidney Stones. Appendectomy 2007. No Fever or chills. Denies Urinary or Penile symptoms. No Vomitting or Diarrhea. Pain 10/[address] ordered. Vital Signs reviewed. Patient is Stable and awaiting Bed Placement. Data Data Last Documented VS Vital Signs Date Time Temp Pulse Resp B/P (MAP) Pulse Ox O2 Delivery O2 Flow Rate FiO2 07/18/17 15:38 98.8 90 18 123/79 (94) 98 Room Air [facility] Medical Record Reviewed: Yes Supervised Visit with BRITTANY: Yes Condition: Stable Warren Caldera Jul 18, 2017 17:12
[2017-07-18] MEDS ORDERED: SODIUM CHLORIDE 0.9% FLUSH 10 ML FLUSH IV FLUSH PRN (17:15)
--- NOTE | 2017-07-18 18:24 | RADRPT ---
EXAM DATE/TIME: 07/18/2017 17:54 [facility] COMPARISON: No previous studies available for comparison. INDICATIONS : Right flank pain. ORAL CONTRAST: No oral contrast ingested. RADIATION DOSE: 8.54 CTDIvol (mGy) MEDICAL HISTORY : Hypertension. SURGICAL HISTORY : Appendectomy. ENCOUNTER: Initial ACUITY: 1 day PAIN SCALE: 4/10 LOCATION: Right flank TECHNIQUE: Volumetric scanning of the abdomen and pelvis was performed. Using automated exposure control and ad justment of the mA and/or kV according to patient size, radiation dose was kept as low as reasonably achievable to obtain optimal diagnostic quality images. DICOM format image data is available electro nically for review and comparison. FINDINGS: LOWER LUNGS: The visualized lower lungs are clear. LIVER: Homogeneous density without lesion. There is no dilation of the biliary tree. No calcified gallston es. SPLEEN: Normal size without lesion. PANCREAS: Within normal limits. KIDNEYS: Normal in size and shape. There is no mass, stone, or hydronephrosis. ADRENAL GLANDS: Within normal limits. VASCULAR: There is no aortic aneurysm. BOWEL/MESENTERY: Scattered diverticula are seen throughout the sigmoid colon. There is mild pericolonic stranding and inflammation in the proximal sigmoid colon. There is no evidence of free or extraintestinal fluid col lections. ABDOMINAL WALL: Within normal limits. RETROPERITONEUM: There is no lymphadenopathy. BLADDER: No wall thickening or mass. REPRODUCTIVE: Within normal limits. INGUINAL: There is no lymphadenopathy or hernia. MUSCULOSKELETAL: Within normal limits for patient age. CONCLUSION: 1. Sigmoid diverticulosis with mild pericolonic inflammation in the proximal sigmoid characteristics of acute diverticulitis. 2. No evidence of nephrolithiasis or obstructive uropathy. Caio Medrano MD on July 18, 2017 at 18:19 Board Certified Radiologist. This report was verified electronically.
[2017-07-18] MEDS ORDERED: ONDANSETRON ODT 4 MG TAB PO ONE (19:00)
[2017-07-18] MEDS ORDERED: SODIUM CHLOR 0.9% 1000 ML INJ 1,000 ML IV ONE (19:00)
--- NOTE | 2017-07-18 19:01 | PD ---
HPI Chief Complaint: Abdominal Pain Time Seen by Provider: 18:47 Travel History International Travel<30 days: No Contact w/Intl Traveler<30days: No Traveled to known affect area: No History of Present Illness HPI 32-year-old male presents to the emergency department for evaluation of abdominal pain. Patient states he had slight abdominal pain last Tuesday, but he has had significant abdominal pain since Tuesday, he days ago. Patient states he has occasional left lower quadrant abdominal pain, most of his pains in the right flank and right abdomen. Reports history of appendectomy. He denies any history of chronic abdominal pain. He denies any nausea or vomiting. No diarrhea or constipation. No fevers or chills. No chest pain or shortness of breath. He reports history of type 2 diabetes and is on metformin. No urinary symptoms. PFSH Past Medical History Asthma: Yes Autoimmune Disease: No Blood Disorders: No Bipolar Disorder: Yes Anxiety: Yes Depression: Yes Heart Rhythm Problems: No Cancer: No Cardiovascular Problems: No High Cholesterol: No Chest Pain: No Congestive Heart Failure: No COPD: No Diabetes: Yes Diminished Hearing: No Endocrine: No Gastrointestinal Disorders: No Genitourinary: No Headaches: No Hypertension: Yes Immune Disorder: No Implanted Vascular Access Dvce: No Kidney Stones: No Musculoskeletal: No Neurologic: No Psychiatric: Yes (history of bipoloar, schizophernia and schizoaffective, d/o) Reproductive: No Respiratory: Yes Immunizations Current: Yes Renal Failure: No Schizophrenia: Yes Seizures: No Sleep Apnea: No Thyroid Disease: No PNEUMOCCOCAL Vaccine (Year): 2 Past Surgical History Abdominal Surgery: Yes (APPENDECTOMY 2002) Appendectomy: Yes Cardiac Surgery: No Ear Surgery: No Endocrine Surgery: No Eye Surgery: No Genitourinary Surgery: No Gynecologic Surgery: No Neurologic Surgery: No Oral Surgery: No Thoracic Surgery: No Other Surgery: Yes Social History Alcohol Use: No Tobacco Use: Yes Substance Use: Yes (pot) Allergies-Medications (Allergen,Severity, Reaction): Coded Allergies: No Known Allergies (Verified , 07/18/17) Reported Meds & Prescriptions Reported Meds & Active Scripts Active Reported Vistaril (Hydroxyzine Pamoate) 50 Mg Cap 50 Mg PO TID Metformin (Metformin HCl) 500 Mg Tab 250 Mg PO BIDPC With meals Vistaril (Hydroxyzine Pamoate) 50 Mg Cap 50 Mg PO TID Invega Sustenna Inj (Paliperidone Palmitate) 156 Mg/Ml Inj 156 Mg IM Q28D Metformin (Metformin HCl) 500 Mg Tab 500 Mg PO TIDPC With meals Review of Systems Except as stated in HPI: all other systems reviewed are Neg Physical Exam Narrative GENERAL: Well-nourished, well-developed male patient, afebrile. SKIN: Focused skin assessment warm/dry. HEAD: Normocephalic. Atraumatic. EYES: No scleral icterus. No injection or drainage. NECK: Supple, trachea midline. No JVD or lymphadenopathy. CARDIOVASCULAR: Regular rate and rhythm without murmurs, gallops, or rubs. RESPIRATORY: Breath sounds equal bilaterally. No accessory muscle use. Lungs sounds are clear to auscultation. GASTROINTESTINAL: Abdomen soft and nondistended. Patient has tenderness over right abdomen. MUSCULOSKELETAL: No cyanosis, or edema. BACK: Nontender without obvious deformity. No CVA tenderness. Data Data Last Documented VS Vital Signs Date Time Temp Pulse Resp B/P (MAP) Pulse Ox O2 Delivery O2 Flow Rate FiO2 07/18/17 19:10 98.8 76 18 109/69 (82) 99 Room Air Orders Orders Complete Blood Count With Diff (07/18/17 17:12) Comprehensive Metabolic Panel (07/18/17 17:12) Urinalysis - C+S If Indicated (07/18/17 17:12) Ct Abd/Pel W/O Iv Contrast (07/18/17 17:12) Iv Access Insert/Monitor (07/18/17 17:12) Ecg Monitoring (07/18/17 17:12) Oximetry (07/18/17 17:12) Sodium Chloride 0.9% Flush (Ns Flush) (07/18/17 17:15) Lipase (07/18/17 18:47) Sodium Chlor 0.9% 1000 Ml Inj (Ns 1000 M (07/18/17 19:00) Ondansetron Odt (Zofran Odt) (07/18/17 19:00) Urine Culture (07/18/17 18:30) Ciprofloxacin (Cipro) (07/18/17 19:30) Metronidazole (Flagyl) (07/18/17 19:30) Labs Laboratory Tests Test 07/18/17 18:30 07/18/17 18:32 Urine Color YELLOW Urine Turbidity HAZY Urine pH 6.0 Urine Specific [place] 1.016 Urine Protein NEG mg/dL Urine Glucose (UA) NEG mg/dL Urine Ketones NEG mg/dL Urine Occult Blood NEG Urine Nitrite NEG Urine Bilirubin NEG Urine Urobilinogen LESS THAN 2.0 MG/DL Urine Leukocyte Esterase LARGE Urine RBC 4 /hpf Urine WBC 59 /hpf Urine Squamous Epithelial Cells 1 /hpf Urine Transitional Epithelial Cells 1 /hpf Urine Amorphous Sediment RARE Urine Bacteria RARE /hpf Microscopic Urinalysis Comment CULTURE INDICATED White Blood Count 6.7 TH/MM3 Red Blood Count 5.29 MIL/MM3 Hemoglobin 14.7 GM/DL Hematocrit 43.7 % Mean Corpuscular Volume 82.7 FL Mean Corpuscular Hemoglobin 27.8 PG Mean Corpuscular Hemoglobin Concent 33.6 % Red Cell Distribution Width 14.7 % Platelet Count 271 TH/MM3 Mean Platelet Volume 8.3 FL Neutrophils (%) (Auto) 46.8 % Lymphocytes (%) (Auto) 39.7 % Monocytes (%) (Auto) 9.9 % Eosinophils (%) (Auto) 2.9 % Basophils (%) (Auto) 0.7 % Neutrophils # (Auto) 3.2 TH/MM3 Lymphocytes # (Auto) 2.7 TH/MM3 Monocytes # (Auto) 0.7 TH/MM3 Eosinophils # (Auto) 0.2 TH/MM3 Basophils # (Auto) 0.0 TH/MM3 CBC Comment DIFF FINAL Differential Comment Blood Urea Nitrogen 9 MG/DL Creatinine 0.83 MG/DL Random Glucose 90 MG/DL Total Protein 8.1 GM/DL Albumin 3.9 GM/DL Calcium Level 9.3 MG/DL Alkaline Phosphatase 74 U/L Aspartate Amino Transf (AST/SGOT) 13 U/L Alanine Aminotransferase (ALT/SGPT) 25 U/L Total Bilirubin 0.4 MG/DL Sodium Level 138 MEQ/L Potassium Level 4.2 MEQ/L Chloride Level 103 MEQ/L Carbon Dioxide Level 28.5 MEQ/L Anion Gap 7 MEQ/L Estimat Glomerular Filtration Rate 131 ML/MIN [facility] Medical Decision Making Medical Screen Exam Complete: Yes Emergency Medical Condition: Yes Medical Record Reviewed: Yes Interpretation(s) CT abdomen/pelvis - CONCLUSION: 1. Sigmoid diverticulosis with mild pericolonic inflammation in the proximal sigmoid characteristics of acute diverticulitis. 2. No evidence of nephrolithiasis or obstructive uropathy. Differential Diagnosis Diverticulitis versus nephrolithiasis versus cholelithiasis versus cholecystitis versus pancreatitis Narrative Course 32-year-old male presents to the emergency department for evaluation of abdominal pain that started 3 days ago. Workup was initiated in triage. CT abdomen/pelvis without contrast shows 1. Sigmoid diverticulosis with mild pericolonic inflammation in the proximal sigmoid characteristics of acute diverticulitis; 2. No evidence of nephrolithiasis or obstructive uropathy. CBC , CMP, lipase, UA are ordered and pending. Patient is given morphine 4 mg IV, Zofran 4 mg IV, normal saline 1 L IV bolus. CBC shows no acute abnormality. CMP shows no acute abnormality. UA shows 59 WBCs. Patient is given Cipro 500 mg PO and Flagyl 500 mg PO. He will be discharged short-term prescription for Lortab, Cipro and Flagyl. He is encouraged to return to emergency department for any acute worsening symptoms, especially in the next 8 hours if things worsen. He verbalizes agreement. The patient was discharged in stable condition with instructions, including return instructions and follow up instructions. Diagnosis Primary Impression: Diverticulitis Qualified Codes: K57.92 - Diverticulitis of intestine, part unspecified, without perforation or abscess without bleeding Referrals: Primary Care Physician 2 days Patient Instructions: Diverticulitis (ED), Diverticulitis Diet (ED), General Instructions Additional Instructions: Take Lortab as instructed as needed for pain. Caution this can make you drowsy so do not drive after taking. Take Flagyl and Cipro as directed until gone. No alcohol while on Flagyl. Follow-up with your primary care physician. Return to the emergency department for any acute worsening of symptoms, especially within the next 8 hours, but anytime if symptoms worsen. Med/Other Pt SpecificInfo: Prescription(s) given Scripts Metronidazole (Flagyl) 500 Mg Tab 500 MG PO TID for Infection for 10 Days, TAB 0 Refills Prov: Alejandrina Whatley 07/18/17 Ciprofloxacin (Cipro) 500 Mg Tab 500 MG PO BID for Infection for 10 Days, TAB 0 Refills Prov: Alejandrina Whatley 07/18/17 Hydrocodone-Acetaminophen (Lortab) 5-325 Mg Tab 1 TAB PO Q6H Y for PAIN, #12 TAB 0 Refills Prov: Waldo Lujan MD 07/18/17 Disposition: 01 DISCHARGE HOME Condition: Stable Alejandrina Whatley Jul 18, 2017 19:01
[2017-07-18 19:04] LABS: BACTERIA, URINE RARE /hpf; BLOOD, URINE NEG (NEG); COMMENT (UR) CULTURE INDICATED; CULTURE IF INDICATED CULTURE INDICATED; GLUCOSE,URINE NEG (NEG); KETONE, URINE NEG (NEG); NITRITE,URINE NEG (NEG); SQUAMOUS EPITHELIAL CELL URINE 1 /hpf (0-5); TRANSITIONAL EPI CELLS, URINE 1 /hpf; URINE COLOR YELLOW (YELLW/STRAW)
[2017-07-18 19:09] LABS: AUTOMATED NEUTROPHIL # 3.2 TH/MM3 (1.8-7.7); BASOPHIL % 0.7 % (0.0-2.0); EOSINOPHIL # 0.2 TH/MM3 (0-0.4); EOSINOPHIL % 2.9 % (0.0-4.0); HEMATOCRIT 43.7 % (39.0-51.0); HEMO FLAGS DIFF FINAL; LYMPH % 39.7 % (9.0-44.0); LYMPHOCYTE # 2.7 TH/MM3 (1.0-4.8); MEAN CELL VOLUME 82.7 FL (80.0-100.0); MEAN CORPUSCULAR HEMOGLOBIN 27.8 PG (27.0-34.0); MEAN CORPUSCULAR HGB CONC 33.6 % (32.0-36.0); MONO % 9.9 % (0.0-8.0); NEUT % 46.8 % (16.0-70.0); PLATELET COUNT 271 TH/MM3 (150-450); RED BLOOD COUNT 5.29 MIL/MM3 (4.50-5.90); RED CELL DISTRIBUTION WIDTH 14.7 % (11.6-17.2); WHITE BLOOD COUNT 6.7 TH/MM3 (4.0-11.0)
[2017-07-18 19:10] VITALS: BP 109/69; PULSE 76; RESP 18; TEMP 98.8; O2SAT 99
[2017-07-18 19:21] LABS: ANION GAP 7 MEQ/L (5-15); AST (GOT) 13 U/L (15-37); BICARBONATE 28.5 MEQ/L (21.0-32.0); BLOOD UREA NITROGEN 9 MG/DL (7-18); CHLORIDE 103 MEQ/L (98-107); GLOMERULAR FILTRATION RATE 131 ML/MIN (>89); POTASSIUM 4.2 MEQ/L (3.5-5.1); SODIUM (NA) 138 MEQ/L (136-145)
[2017-07-18 19:23] LABS: ALT (GPT) 25 U/L (12-78)
[2017-07-18 19:25] LABS: ALKALINE PHOSPHATASE 74 U/L (45-117); TOTAL BILIRUBIN ADULT 0.4 MG/DL (0.2-1.0)
[2017-07-18] MEDS ORDERED: metroNIDAZOLE 500 MG TAB PO ONE (19:30)
[2017-07-18] MEDS ORDERED: METF500T PO (19:30)
[2017-07-18] MEDS ORDERED: CIPROFLOXACIN 500 MG TAB PO ONE (19:30)
[2017-07-18] MEDS ORDERED: VIST50CA PO (19:31)
[2017-07-18] MEDS ORDERED: HYDR-3533 PO (19:32)
[2017-07-18] MEDS ORDERED: CIPR-9 PO (19:39)
[2017-07-18] MEDS ORDERED: METR-1 PO (19:39)
== END 2017-07-18 20:14 | disposition home or self-care (01) ==
LOC: NEPD 15:31
DX: K57.30 Diverticulosis of large intestine without perforation or abscess without bleeding (principal); E11.9 Type 2 diabetes mellitus without complications; I10 Essential (primary) hypertension; Z72.0 Tobacco use; Z79.84 Long term (current) use of oral hypoglycemic drugs
CPT/HCPCS: 74176; 80053; 81001; 85025; 87086; 99284; J7030

== ENCOUNTER 2018-02-24 16:20 | Emergency (ER) | payer SELFPAY ==
[~2018-02-24] VITALS: Ht 170.2 cm; Wt 113.5 kg
[~2018-02-24 16:20] MED LIST changes: +CIPR-9 PO; +HYDR-3533 PO; +METR-1 PO
[2018-02-24 16:28] VITALS: BP 156/77; PULSE 102; RESP 18; TEMP 98.9; O2SAT 100
--- NOTE | 2018-02-24 17:10 | RADRPT ---
EXAM DATE/TIME: 02/24/2018 16:46 [facility] COMPARISON: No previous studies available for comparison. INDICATIONS : Left sided chest pain for 5 days MEDICAL HISTORY : None. SURGICAL HISTORY : None. ENCOUNTER: Initial ACUITY: 4 - 6 days PAIN SCORE: 10/10 LOCATION: Left chest FINDINGS: PA and lateral views of the chest were obtained and demonstrate no confluent infiltrates. There is mi ld blunting of the left lateral costophrenic angle. Posterior costophrenic angles are patent. The hea rt and mediastinal structures are within normal limits. The bony thorax is intact. CONCLUSION: Mild blunting of the left lateral costophrenic angle. The posterior costophrenic angl e is patent and this may represent scarring. Study is otherwise unremarkable. Alvarado Savage MD on February 24, 2018 at 17:06 Board Certified Radiologist. This report was verified electronically.
[2018-02-24] MEDS ORDERED: DEXAMETHASONE SOD PHOS 20 MG/5 ML VIAL IV ONE (18:45)
[2018-02-24] MEDS ORDERED: RESP: ALBUTEROL 2.5 MG/IPRATROPIUM 0.5 MG NEB (SCH) INH ONE (18:45)
[2018-02-24] MEDS ORDERED: ASPIRIN 81 MG CHEW TAB PO ONE (18:45)
--- NOTE | 2018-02-24 18:45 | PD ---
HPI Chief Complaint: Musculoskeletal Complaint Time Seen by Provider: 18:05 Travel History International Travel<30 days: No Contact w/Intl Traveler<30days: No Traveled to known affect area: No History of Present Illness HPI 32-year-old [place] male presents emergency department sudden onset left lower chest pain since last Tuesday. Patient states it started suddenly has gotten progressively worse over the past 5 days. Patient does feel short of breath. He denies cough, but feels wheezy. Patient does smoke half a pack of cigarettes daily. Patient denies fever, chills, nausea, vomiting, or abdominal pain. Patient feels generally weak since this started. He is moderately obese. He has no known drug allergies. PFSH Past Medical History Asthma: Yes Autoimmune Disease: No Blood Disorders: No Bipolar Disorder: Yes Anxiety: Yes Depression: Yes Heart Rhythm Problems: No Cancer: No Cardiovascular Problems: No High Cholesterol: No Chest Pain: No Congestive Heart Failure: No COPD: No Diabetes: Yes ( on metformin last time yesterday am. 250mg BID) Diminished Hearing: No Endocrine: No Gastrointestinal Disorders: No Genitourinary: No Headaches: No Hypertension: Yes Immune Disorder: No Implanted Vascular Access Dvce: No Kidney Stones: No Musculoskeletal: No Neurologic: No Psychiatric: Yes (history of bipoloar, schizophernia and schizoaffective, d/o) Reproductive: No Respiratory: Yes Immunizations Current: Yes Renal Failure: No Schizophrenia: Yes Seizures: No Sleep Apnea: No Thyroid Disease: No PNEUMOCCOCAL Vaccine (Year): 2 Past Surgical History Abdominal Surgery: Yes (APPENDECTOMY 2002) Appendectomy: Yes Cardiac Surgery: No Ear Surgery: No Endocrine Surgery: No Eye Surgery: No Genitourinary Surgery: No Gynecologic Surgery: No Neurologic Surgery: No Oral Surgery: No Thoracic Surgery: No Other Surgery: Yes Social History Alcohol Use: No Tobacco Use: Yes Substance Use: No Allergies-Medications (Allergen,Severity, Reaction): Coded Allergies: No Known Allergies (Verified , 07/18/17) Reported Meds & Prescriptions Reported Meds & Active Scripts Active Flagyl (Metronidazole) 500 Mg Tab 500 Mg PO TID 10 Days Cipro (Ciprofloxacin HCl) 500 Mg Tab 500 Mg PO BID 10 Days Lortab (Hydrocodone-Acetaminophen) 5-325 Mg Tab 1 Tab PO Q6H PRN Reported Vistaril (Hydroxyzine Pamoate) 50 Mg Cap 50 Mg PO TID Metformin (Metformin HCl) 500 Mg Tab 250 Mg PO BIDPC With meals Vistaril (Hydroxyzine Pamoate) 50 Mg Cap 50 Mg PO TID Invega Sustenna Inj (Paliperidone Palmitate) 156 Mg/Ml Inj 156 Mg IM Q28D Metformin (Metformin HCl) 500 Mg Tab 500 Mg PO TIDPC With meals Review of Systems Except as stated in HPI: all other systems reviewed are Neg General / Constitutional: No: Fever, Chills Eyes: No: Visual changes HENT: No: Headaches Cardiovascular: Positive: Tachycardia, No: Chest Pain or Discomfort Respiratory: Positive: Shortness of Breath, Wheezing, Pleuritic Pain, No: Cough , Sneezing, Orthopnea, Hemoptysis, Stridor, Night Sweats Gastrointestinal: No: Nausea, Vomiting, Diarrhea, Abdominal Pain Genitourinary: No: Dysuria Musculoskeletal: No: Pain Skin: No Rash Neurologic: No: Weakness Psychiatric: No: Depression Endocrine: No: Polydipsia Hematologic/Lymphatic: No: Easy Bruising Physical Exam Narrative GENERAL: Patient appears somewhat anxious. He is in mild to moderate distress per SKIN: Warm and dry. Normal color. Normal turgor. HEAD: Atraumatic. Normocephalic. EYES: Pupils equal and round. No scleral icterus. No injection or drainage. ENT: No nasal bleeding or discharge. Mucous membranes pink and moist. TMs are clear. No sinus tenderness. Pharynx is clear. Airways patent. NECK: Trachea midline. Supple nontender per CARDIOVASCULAR: Tachycardic rate and normal rhythm. RESPIRATORY: No accessory muscle use. Mild diffuse wheezes to auscultation. No rales or rhonchi. Breath sounds equal bilaterally. It is difficult to reproduce the patient's pain with palpation to the anterior chest. He specifically says he has tenderness with deep breath in left lower anterior chest. GASTROINTESTINAL: Abdomen soft, non-tender, nondistended. Hepatic and splenic margins not palpable. MUSCULOSKELETAL: Extremities without clubbing, cyanosis, or edema. No obvious deformities. NEUROLOGICAL: Awake and alert. No obvious cranial nerve deficits. Motor grossly within normal limits. Five out of 5 muscle strength in the arms and legs. Normal speech. PSYCHIATRIC: Appropriate mood and affect; insight and judgment normal. Data Data Last Documented VS Vital Signs Date Time Temp Pulse Resp B/P (MAP) Pulse Ox O2 Delivery O2 Flow Rate FiO2 02/24/18 16:28 98.9 102 18 156/77 (103) 100 Orders Orders Chest, Pa & Lat (02/24/18 ) Electrocardiogram (02/24/18 18:31) Basic Metabolic Panel (Bmp) (02/24/18 18:31) Complete Blood Count With Diff (02/24/18 18:31) Prothrombin Time / Inr (Pt) (02/24/18 18:31) Act Partial Throm Time (Ptt) (02/24/18 18:31) Ecg Monitoring (02/24/18 18:31) Bilateral Bp Monitoring (02/24/18 18:31) Iv Access Insert/Monitor (02/24/18 18:31) Oximetry (02/24/18 18:31) Oxygen Administration (02/24/18 18:31) Sodium Chloride 0.9% Flush (Ns Flush) (02/24/18 18:45) Aspirin Chew (Aspirin Chew) (02/24/18 18:45) Ct Pulmonary Angiogram (02/24/18 18:37) Dexamethasone Inj (Decadron Inj) (02/24/18 18:45) Albuterol-Ipratropium Neb (Duoneb Neb) (02/24/18 18:45) Chest, Pa & Lat (02/24/18 18:52) MDM Medical Decision Making Medical Screen Exam Complete: Yes Emergency Medical Condition: Yes Differential Diagnosis Atypical chest pain. Shortness of breath. Pneumonia. Wheezing. Possible PE. Narrative Course Patient appears medically stable other than being tachycardic on his vital signs. O2 sat is normal. Chest x-ray ordered in triage shows Mild blunting of the left lateral costophrenic angle. The posterior costophrenic angle is patent and this may represent scarring. Study is otherwise unremarkable. IV access is obtained patient is labs ordered including CBC, CMP, coagulation studies. CTA is ordered to rule out PE. Patient is given DuoNeb 1, as well as 10 mg Decadron IV 1900 hrs., changes shift, care of the patient is turned over to Marc Plata PA-C for final disposition. Condition: Stable Warren aCldera Feb 24, 2018 18:45
[2018-02-24 19:03] VITALS: O2SAT 98
--- NOTE | 2018-02-24 19:13 | RADRPT ---
EXAM DATE/TIME: 02/24/2018 18:45 [facility] COMPARISON: CHEST PA & LAT, February 24, 2018, 16:46. INDICATIONS : Chest pain. MEDICAL HISTORY : None. SURGICAL HISTORY : None. ENCOUNTER: Initial ACUITY: 1 day PAIN SCORE: 10/10 LOCATION: Left chest FINDINGS: The heart size is normal. There is linear density seen at the left midlung. There is minimal blunting of the left costophrenic angle. The posterior costophrenic angles are clear. A significant effusion is not present. The right lung is clear. CONCLUSION: Linear scarring or atelectasis at the mid left lung. There is blunting of the left costophrenic angle . Some minimal left lateral pleural disease may be present. Giuseppe Barajas MD on February 24, 2018 at 19:10 Board Certified Radiologist. This report was verified electronically.
--- NOTE | 2018-02-24 19:17 | PD ---
Physical Exam Time Seen by Provider: 19:00 Data Data Last Documented VS Vital Signs Date Time Temp Pulse Resp B/P (MAP) Pulse Ox O2 Delivery O2 Flow Rate FiO2 02/24/18 19:03 98 Room Air 02/24/18 16:28 98.9 102 18 156/77 (103) Orders Orders Chest, Pa & Lat (02/24/18 ) Electrocardiogram (02/24/18 18:31) Basic Metabolic Panel (Bmp) (02/24/18 18:31) Complete Blood Count With Diff (02/24/18 18:31) Prothrombin Time / Inr (Pt) (02/24/18 18:31) Act Partial Throm Time (Ptt) (02/24/18 18:31) Ecg Monitoring (02/24/18 18:31) Bilateral Bp Monitoring (02/24/18 18:31) Iv Access Insert/Monitor (02/24/18 18:31) Oximetry (02/24/18 18:31) Oxygen Administration (02/24/18 18:31) Sodium Chloride 0.9% Flush (Ns Flush) (02/24/18 18:45) Aspirin Chew (Aspirin Chew) (02/24/18 18:45) Ct Pulmonary Angiogram (02/24/18 18:37) Albuterol-Ipratropium Neb (Duoneb Neb) (02/24/18 18:45) Chest, Pa & Lat (02/24/18 18:52) Dexamethasone Inj (Decadron Inj) (02/24/18 18:45) Ketorolac Inj (Toradol Inj) (02/24/18 21:30) Iohexol 350 Inj (Omnipaque 350 Inj) (02/24/18 21:39) Doxycycline (Vibramycin) (02/24/18 22:15) Ed Discharge Order (02/24/18 22:11) Labs Laboratory Tests Test 02/24/18 19:30 White Blood Count 8.2 TH/MM3 Red Blood Count 5.18 MIL/MM3 Hemoglobin 15.1 GM/DL Hematocrit 42.5 % Mean Corpuscular Volume 82.0 FL Mean Corpuscular Hemoglobin 29.2 PG Mean Corpuscular Hemoglobin Concent 35.5 % Red Cell Distribution Width 13.9 % Platelet Count 185 TH/MM3 Mean Platelet Volume 9.5 FL Neutrophils (%) (Auto) 70.2 % Lymphocytes (%) (Auto) 21.6 % Monocytes (%) (Auto) 6.8 % Eosinophils (%) (Auto) 1.1 % Basophils (%) (Auto) 0.3 % Neutrophils # (Auto) 5.8 TH/MM3 Lymphocytes # (Auto) 1.8 TH/MM3 Monocytes # (Auto) 0.6 TH/MM3 Eosinophils # (Auto) 0.1 TH/MM3 Basophils # (Auto) 0.0 TH/MM3 CBC Comment DIFF FINAL Differential Comment Prothrombin Time 10.6 SEC Prothromb Time International Ratio 1.0 RATIO Activated Partial Thromboplast Time 27.6 SEC Blood Urea Nitrogen 6 MG/DL Creatinine 1.06 MG/DL Random Glucose 106 MG/DL Calcium Level 9.1 MG/DL Sodium Level 140 MEQ/L Potassium Level 3.7 MEQ/L Chloride Level 103 MEQ/L Carbon Dioxide Level 29.9 MEQ/L Anion Gap 7 MEQ/L Estimat Glomerular Filtration Rate 99 ML/MIN MDM Medical Record Reviewed: Yes Supervised Visit with BRITTANY: No Narrative Course Please see previous providers notes for complete history of present illness. I assumed care pending lab work and imaging studies. This is a 32-year-old male smoker with no significant past medical history presents with a sharp left- sided chest pain that is worse with inspiration and palpation. On examination he has mild wheezing bilaterally. He has reproducible tenderness to palpation to the left anterior chest wall. There is no rash. There is no lower extremity edema. His abdomen is soft nontender. CT pulmonary angiogram reveals CONCLUSION: 1. No central pulmonary. The pulmonary arteries are suboptimally opacified. 2. Mild left pleural effusion. 3. Mild area of consolidation in the anterior left upper lobe and at the inferior lateral left lingula. 4. Suspected chronic cystic change/emphysematous change in the posterior mid left upper lobe. 5. Hepatic steatosis. His lab work is unremarkable. Upon reexamination he feels improved. Plan is to treat him for community-acquired pneumonia with doxycycline. He also given prednisone, albuterol inhaler for his wheezing. Recommended follow-up with primary care physician in 1-2 weeks. Diagnosis Primary Impression: Pneumonia Additional Impressions: Pleurisy Wheezing Additional Instruction: Avoid tobacco products. Take ibuprofen for pain per dosing instructions on the bottle. Medication as prescribed. Follow-up with primary care physician in 1- 2 weeks. Return for any acutely new or worsening symptoms. Med/Other Pt SpecificInfo: Prescription(s) given Scripts Prednisone (Prednisone) 20 Mg Tab 20 MG PO BID for 5 Days, #10 TAB 0 Refills Prov: Padmini Higgins DO 02/24/18 Albuterol 8.5 GM Inh (Proair Hfa 8.5 GM Inh) 90 Mcg/Act Aer 2 PUFF INH Q4-6H Y for SHORTNESS OF BREATH, #1 INHALER 0 Refills 108 mcg/actuation Prov: Padmini Higgins DO 02/24/18 Doxycycline Hyclate (Doxycycline Hyclate) 100 Mg Cap 100 MG PO BID for Infection, #20 CAP 0 Refills Prov: Padmini Higgins DO 02/24/18 Disposition: 01 DISCHARGE HOME Condition: Stable Marc Plata Feb 24, 2018 19:17
[2018-02-24] MEDS: SODIUM CHLORIDE 0.9% FLUSH 10 ML FLUSH IVF PRN ×2 (19:32→22:06)
[2018-02-24 20:39] LABS: AUTOMATED NEUTROPHIL # 5.8 TH/MM3 (1.8-7.7); BASOPHIL % 0.3 % (0.0-2.0); EOSINOPHIL # 0.1 TH/MM3 (0-0.4); EOSINOPHIL % 1.1 % (0.0-4.0); HEMATOCRIT 42.5 % (39.0-51.0); HEMOGLOBIN 15.1 GM/DL (13.0-17.0); LYMPH % 21.6 % (9.0-44.0); LYMPHOCYTE # 1.8 TH/MM3 (1.0-4.8); MEAN CORPUSCULAR HEMOGLOBIN 29.2 PG (27.0-34.0); MEAN CORPUSCULAR HGB CONC 35.5 % (32.0-36.0); MEAN PLATELET VOLUME 9.5 FL (7.0-11.0); MONO % 6.8 % (0.0-8.0); MONOCYTE # 0.6 TH/MM3 (0-0.9); NEUT % 70.2 % (16.0-70.0); PLATELET COUNT 185 TH/MM3 (150-450); RED BLOOD COUNT 5.18 MIL/MM3 (4.50-5.90); RED CELL DISTRIBUTION WIDTH 13.9 % (11.6-17.2); WHITE BLOOD COUNT 8.2 TH/MM3 (4.0-11.0)
[2018-02-24 20:40] LABS: PROTHROMBIN TIME - PATIENT 10.6 SEC (9.8-11.6)
[2018-02-24 20:48] LABS: BICARBONATE 29.9 MEQ/L (21.0-32.0); CALCIUM 9.1 MG/DL (8.5-10.1); CREATININE 1.06 MG/DL (0.60-1.30)
[2018-02-24] MEDS ORDERED: KETOROLAC TROMETHAMINE 30 MG/ML (IVP) VIAL IV PUSH ONE (21:30)
[2018-02-24] MEDS ORDERED: IOHEXOL 350 MG/ML 10 ML VIAL (for RAD DIAG) IVCONTRAST ONE (21:39)
--- NOTE | 2018-02-24 22:02 | RADRPT ---
EXAM DATE/TIME: 02/24/2018 21:28 [facility] COMPARISON: No previous studies available for comparison. INDICATIONS : Left sided chest pain. IV CONTRAST: 50 cc Omnipaque 350 (iohexol) IV RADIATION DOSE: 22.96 CTDIvol (mGy) MEDICAL HISTORY : None SURGICAL HISTORY : None. ENCOUNTER: Initial ACUITY: 4 - 6 days PAIN SCALE: 10/10 LOCATION: Left chest TECHNIQUE: Volumetric scanning of the chest was performed using a pulmonary embolism protocol MIP images were re constructed. Using automated exposure control and adjustment of the mA and/or kV according to patien t size, radiation dose was kept as low as reasonably achievable to obtain optimal diagnostic quality images. DICOM format image data is available electronically for review and comparison. Follow-up recommendations for detected pulmonary nodules are based at a minimum on nodule size and pa tient risk factors according to Fleischner Society Guidelines. FINDINGS: PULMONARY ARTERIES: The pulmonary arteries are suboptimally opacified. A central pulmonary embolus is not seen. LUNGS: There is focal cystic/emphysematous change seen in the posterior left upper lobe. There is an area of focal consolidation in the anterior medial left upper lobe. There is some mild consolidation at the inferior lateral left lingula. There some minimal increased density at the posterior left lower lobe adjacent to a mild left pleural effusion. PLEURAE: There is a mild left pleural effusion. MEDIASTINUM: There is good visualization of the great vessels of the middle mediastinum. No evidence of mediastin al or hilar adenopathy/mass. The aorta appears normal. Calcified lymph nodes are seen in the left hil ar region. MUSCULOSKELETAL: Within normal limits for patient age. MISCELLANEOUS: The visualized upper abdominal organs demonstrate no acute abnormality. There is decreased density th roughout the liver. CONCLUSION: 1. No central pulmonary. The pulmonary arteries are suboptimally opacified. 2. Mild left pleural effusion. 3. Mild area of consolidation in the anterior left upper lobe and at the inferior lateral left lingul a. 4. Suspected chronic cystic change/emphysematous change in the posterior mid left upper lobe. 5. Hepatic steatosis. Giuseppe Barajas MD on February 24, 2018 at 21:55 Board Certified Radiologist. This report was verified electronically.
[2018-02-24] MEDS ORDERED: PRED20 PO (22:11)
[2018-02-24] MEDS ORDERED: ALBUAER3 INH (22:11)
[2018-02-24] MEDS ORDERED: DOXY100C PO (22:11)
--- NOTE | 2018-02-24 22:13 | PD ---
Physical Exam Date Seen by Provider: Feb 24, 2018 Data Data Last Documented VS Vital Signs Date Time Temp Pulse Resp B/P (MAP) Pulse Ox O2 Delivery O2 Flow Rate FiO2 02/24/18 19:03 98 Room Air 02/24/18 16:28 98.9 102 18 156/77 (103) Orders Orders Chest, Pa & Lat (02/24/18 ) Electrocardiogram (02/24/18 18:31) Basic Metabolic Panel (Bmp) (02/24/18 18:31) Complete Blood Count With Diff (02/24/18 18:31) Prothrombin Time / Inr (Pt) (02/24/18 18:31) Act Partial Throm Time (Ptt) (02/24/18 18:31) Ecg Monitoring (02/24/18 18:31) Bilateral Bp Monitoring (02/24/18 18:31) Iv Access Insert/Monitor (02/24/18 18:31) Oximetry (02/24/18 18:31) Oxygen Administration (02/24/18 18:31) Sodium Chloride 0.9% Flush (Ns Flush) (02/24/18 18:45) Aspirin Chew (Aspirin Chew) (02/24/18 18:45) Ct Pulmonary Angiogram (02/24/18 18:37) Albuterol-Ipratropium Neb (Duoneb Neb) (02/24/18 18:45) Chest, Pa & Lat (02/24/18 18:52) Dexamethasone Inj (Decadron Inj) (02/24/18 18:45) Ketorolac Inj (Toradol Inj) (02/24/18 21:30) Iohexol 350 Inj (Omnipaque 350 Inj) (02/24/18 21:39) Labs Laboratory Tests Test 02/24/18 19:30 White Blood Count 8.2 TH/MM3 Red Blood Count 5.18 MIL/MM3 Hemoglobin 15.1 GM/DL Hematocrit 42.5 % Mean Corpuscular Volume 82.0 FL Mean Corpuscular Hemoglobin 29.2 PG Mean Corpuscular Hemoglobin Concent 35.5 % Red Cell Distribution Width 13.9 % Platelet Count 185 TH/MM3 Mean Platelet Volume 9.5 FL Neutrophils (%) (Auto) 70.2 % Lymphocytes (%) (Auto) 21.6 % Monocytes (%) (Auto) 6.8 % Eosinophils (%) (Auto) 1.1 % Basophils (%) (Auto) 0.3 % Neutrophils # (Auto) 5.8 TH/MM3 Lymphocytes # (Auto) 1.8 TH/MM3 Monocytes # (Auto) 0.6 TH/MM3 Eosinophils # (Auto) 0.1 TH/MM3 Basophils # (Auto) 0.0 TH/MM3 CBC Comment DIFF FINAL Differential Comment Prothrombin Time 10.6 SEC Prothromb Time International Ratio 1.0 RATIO Activated Partial Thromboplast Time 27.6 SEC Blood Urea Nitrogen 6 MG/DL Creatinine 1.06 MG/DL Random Glucose 106 MG/DL Calcium Level 9.1 MG/DL Sodium Level 140 MEQ/L Potassium Level 3.7 MEQ/L Chloride Level 103 MEQ/L Carbon Dioxide Level 29.9 MEQ/L Anion Gap 7 MEQ/L Estimat Glomerular Filtration Rate 99 ML/MIN [facility] Medical Record Reviewed: Yes Supervised Visit with BRITTANY: Yes Interpretation(s) Vital Signs Date Time Temp Pulse Resp B/P (MAP) Pulse Ox O2 Delivery O2 Flow Rate FiO2 02/24/18 19:03 98 Room Air 02/24/18 16:28 98.9 102 18 156/77 (103) 100 CBC & BMP Diagram 02/24/18 19:30 Calcium Level 9.1 Last Impressions Chest X-Ray 02/24/18 1852 Signed Impressions: Service Date/Time: Saturday, February 24, 2018 18:45 - CONCLUSION: Linear scarring or atelectasis at the mid left lung. There is blunting of the left costophrenic angle. Some minimal left lateral pleural disease may be present. Giuseppe Barajas MD CT Angiography 02/24/18 1837 Signed Impressions: Service Date/Time: Saturday, February 24, 2018 21:28 - CONCLUSION: 1. No central pulmonary. The pulmonary arteries are suboptimally opacified. 2. Mild left pleural effusion. 3. Mild area of consolidation in the anterior left upper lobe and at the inferior lateral left lingula. 4. Suspected chronic cystic change/emphysematous change in the posterior mid left upper lobe. 5. Hepatic steatosis. Giuseppe Barajas MD Chest X-Ray 02/24/18 0000 Signed Impressions: Service Date/Time: Saturday, February 24, 2018 16:46 - CONCLUSION: Mild blunting of the left lateral costophrenic angle. The posterior costophrenic angle is patent and this may represent scarring. Study is otherwise unremarkable. Alvarado Savage MD Differential Diagnosis acs, arrhythmia, PE, pneumonia Narrative Course I, Dr. Higgins, have reviewed the advance practice practitioner's documentation and am in agreement, met with the patient face to face, made the diagnosis, and the medical decision making was done by me. *My assessment and Findings: Multilobar pneumonia with pleural effusion -plan to start patient on antibiotics , patient understands importance of following up with his primary care doctor. Signs and symptoms of when to return to the emergency room was reviewed patient in detail. Smoking cessation was reviewed with patient in detail. Scripts Prednisone (Prednisone) 20 Mg Tab 20 MG PO BID for 5 Days, #10 TAB 0 Refills Prov: Padmini Higgins DO 02/24/18 Albuterol 8.5 GM Inh (Proair Hfa 8.5 GM Inh) 90 Mcg/Act Aer 2 PUFF INH Q4-6H Y for SHORTNESS OF BREATH, #1 INHALER 0 Refills 108 mcg/actuation Prov: Padmini Higgins DO 02/24/18 Doxycycline Hyclate (Doxycycline Hyclate) 100 Mg Cap 100 MG PO BID for Infection, #20 CAP 0 Refills Prov: Padmini Higgins DO 02/24/18 Condition: Stable Padmini Higgins DO Feb 24, 2018 22:13
[2018-02-24] MEDS ORDERED: DOXYCYCLINE HYCLATE 100 MG CAP PO ONE (22:15)
[2018-02-24 22:30] VITALS: BP_SYST 12; BP_SYST 123; BP_DIAS 82; PULSE 94; RESP 16; O2SAT 97
--- NOTE | 2018-02-26 12:22 | EKG ---
Date Performed: 02/24/2018 Time Performed: 19:10:55 PTAGE: 32 years EKG: SINUS TACHYCARDIA NONSPECIFIC ST ELEVATION ABNORMAL RHYTHM ECG NO PREVIOUS TRACING DOCTOR: Alex Maxwell Interpretating Date/Time 02/26/2018 12:17:13
== END 2018-02-24 22:36 | disposition home or self-care (01) ==
LOC: NEPD 16:20
DX: J18.1 Lobar pneumonia, unspecified organism (principal); J91.8 Pleural effusion in other conditions classified elsewhere; F17.210 Nicotine dependence, cigarettes, uncomplicated; E11.9 Type 2 diabetes mellitus without complications; F31.9 Bipolar disorder, unspecified; F20.9 Schizophrenia, unspecified; Z79.84 Long term (current) use of oral hypoglycemic drugs
CPT/HCPCS: 71046; 71275; 80048; 85025; 85610; 85730; 93005; 94664; 96374; 96375; 99285; J1100; J1885; Q9967